=== PATIENT | female | born 1990 | race Caucasian/White ===

== ENCOUNTER 2016-09-01 03:45 | Emergency (ER) | payer SELFPAY ==
--- NOTE | 2016-09-01 04:16 | ER Document Report ---
ED General - General Chief Complaint: Vaginal Bleeding Stated Complaint: VAGINAL BLEEDING Time Seen by Provider: 09/01/16 04:14 Mode of Arrival: Ambulatory Information source: Patient Notes: Patient presents emergency department with complaints of abdominal pain, vaginal bleeding outside of her menstrual cycle. Patient reports she already had a menses this month from August 09-. She reports 2 days ago she started bleeding again. She reports she is gone through 3 supersized tampons in 6 hours. Has a history of diabetes and PCOS. Patient is unsure if she is . Patient is smiling laughing in no distress. TRAVEL OUTSIDE OF THE [place] IN LAST 30 DAYS: No - HPI Onset: Other - tuesday Quality of pain: Cramping Severity: Moderate Pain Level: 3 Associated symptoms: None Exacerbated by: Denies Relieved by: Denies Similar symptoms previously: No Recently seen / treated by doctor: No - Related Data Allergies/Adverse Reactions: medroxyprogesterone acetate [From Provera] Allergy (Verified 12/30/14 17:22) Past Medical History - General Information source: Patient Last Menstrual Period: current - Social History Smoking Status: Current Every Day Smoker Cigarette use (# per day): Yes Chew tobacco use (# tins/day): No Frequency of alcohol use: None Drug Abuse: None Family History: DM, Hyperlipidemia, Malignancy, Thyroid Disfunction, Other - hemochromotosis and kidney disease Patient has suicidal ideation: No Patient has homicidal ideation: No Endocrine Medical History: Reports: Hx Diabetes Mellitus Type 2, Other - pcos Renal/ Medical History: Denies: Hx Peritoneal Dialysis Psychiatric Medical History: Reports: Hx Anxiety, Hx Depression Past Surgical History: Reports: Hx Section - 1 - Immunizations Immunizations up to date: Yes Hx Diphtheria, Pertussis, Tetanus Vaccination: Yes Review of Systems - Review of Systems Notes: Review HPI for review of systems., All other systems negative Physical Exam - Vital signs Vitals: Temp Pulse Resp BP Pulse Ox 98 F 53 L 18 125/82 97 09/01/16 03:52 09/01/16 03:52 09/01/16 03:52 09/01/16 03:52 09/01/16 03:52 - Notes Notes: PHYSICAL EXAMINATION: GENERAL: Well-appearing and in no acute distress HEAD: Atraumatic, normocephalic. EYES: Pupils equal round extraocular movements intact, sclera anicteric, conjunctiva are normal. ENT: nares patent, . Moist mucous membranes. NECK: Normal range of motion, supple without lymphadenopathy LUNGS: CTAB and equal. No wheezes rales or rhonchi. HEART: Regular rate and rhythm without murmurs ABDOMEN: Soft, no tenderness. No guarding, no rebound no pain with palpation EXTREMITIES: Normal range of motion, no pitting edema. No cyanosis. NEUROLOGICAL: Cranial nerves grossly intact. Normal sensory/motor exams. PSYCH: Normal mood, normal affect. SKIN: Warm, Dry, normal turgor, no rashes or lesions noted Course - Re-evaluation Re-evalutation: 09/01/16 Labs unremarkable. Pt has PCOS, possible irregular menses. Pt was instructed on labs, importance of fu with welder assembler. - Vital Signs Vital signs: Temp Pulse Resp BP Pulse Ox 97.5 F 42 L 18 94/50 L 96 09/01/16 06:34 09/01/16 06:34 09/01/16 03:52 09/01/16 06:34 09/01/16 06:34 - Laboratory Result Diagrams: 09/01/16 05:11 09/01/16 05:11 Laboratory results interpreted by me: 09/01/16 09/01/16 05:11 05:11 WBC 10.8 H Chloride 108 H Carbon Dioxide 20 L Discharge - Discharge Clinical Impression: Vaginal bleeding Condition: Stable Disposition: HOME, SELF-CARE Instructions: Vaginal Bleeding ([facility]), [facility], [facility] [place] Additional Instructions: *You have been evaluated for vaginal bleeding *Take medication as prescribed *Follow up with your UNDERGROUND ELECTRICIAN or the health department for recheck *Return to ED for worsening condition, changes, needs Referrals: LEIGH BA MD [Primary Care Provider] - Follow up in 3-5 days
[2016-09-01 05:28] LABS: ABSOLUTE BASOPHILS # (AUTO) 0.1 10^3/uL (0.0-0.2); ABSOLUTE EOSINOPHILS # (AUTO) 0.5 10^3/uL (0.0-0.6); ABSOLUTE LYMPHOCYTES (AUTO) 2.9 10^3/uL (0.5-4.7); ABSOLUTE MONOCYTES (AUTO) 0.8 10^3/uL (0.1-1.4); ABSOLUTE NEUT (AUTO) 6.4 10^3/uL (1.7-8.2); BASOPHILS % (AUTO) 1.2 % (0-2); HEMATOCRIT 44.7 % (36.0-47.0); HGB HCT DIFFERENCE 0.3; LYMPHOCYTES % (AUTO) 26.8 % (13-45); MEAN CORPUSCULAR HEMOGLOBIN 30.7 pg (27.0-33.4); MEAN CORPUSCULAR HGB CONC 33.6 g/dL (32.0-36.0); MEAN CORPUSCULAR VOLUME 91 fl (80-97); MONOCYTES % (AUTO) 7.8 % (3-13); RED BLOOD COUNT 4.89 10^6/uL (3.72-5.28); RED CELL DISTRIBUTION WIDTH 13.1 % (11.5-14.0); SEGMENTED NEUTROPHILS % (AUTO) 59.2 % (42-78); WHITE BLOOD COUNT 10.8 10^3/uL (4.0-10.5)
[2016-09-01 05:39] LABS: ALANINE AMINOTRANSFERASE 46 U/L (9-52); ALKALINE PHOSPHATASE 63 U/L (38-126); ANION GAP 13 (5-19); ASPARTATE AMINO TRANSFERASE 35 U/L (14-36); BILIRUBIN,DIRECT 0.4 mg/dL (0.0-0.4); BILIRUBIN,TOTAL 1.1 mg/dL (0.2-1.3); BLOOD UREA NITROGEN 12 mg/dL (7-20); CALCIUM 9.7 mg/dL (8.4-10.2); CARBON DIOXIDE 20 mmol/L (22-30); CHLORIDE 108 mmol/L (98-107); GLUCOSE 101 mg/dL (75-110); POTASSIUM 4.3 mmol/L (3.6-5.0); SODIUM 140.5 mmol/L (137-145)
[2016-09-01 06:36] VITALS: BP 94/50
== END 2016-09-01 06:36 | disposition home or self-care (01) ==
LOC: ER 03:45
DX: N93.8 Other specified abnormal uterine and vaginal bleeding (principal); R10.9 Unspecified abdominal pain; F17.210 Nicotine dependence, cigarettes, uncomplicated
CPT/HCPCS: 36415; 80053; 84702; 85025; 99284

== ENCOUNTER 2016-09-26 10:49 | Emergency (ER) | payer SELFPAY ==
[2016-09-26 10:55] VITALS: BP 118/79
--- NOTE | 2016-09-26 11:54 | ER Document Report ---
HPI - HPI Pain Level: 4 Notes: Patient is a 26-year-old female who presents to the ED complaining of left low back pain 1 day without known injury. Patient states that she was working around the house the day before. Patient states that she does have osteoarthritis in her low back, but no other issues to her back. She denies any radiation of her pain. The pain is described as a soreness/occasional sharp. Patient states that the pain is worsened with twisting and flexing. She denies any loss of control of bowel or bladder, urinary retention, muscle paralysis/weakness, numbness/tingling, saddle anesthesia. She denies any recent illness, travel, exposure to sick contacts. She denies any procedures or injections into her low back. Patient does have a past medical history significant for insulin-dependent diabetes and is on Lantus daily. Patient admits to smoking but denies any other illicit or IV drug use. Her PCM is [facility]. Denies any fever, URI, headache, chest pain, palpitations, syncope, cough, wheeze, shortness of breath, abdominal pain, nausea/vomiting/ diarrhea/constipation, hematuria, dysuria, vaginal discharge/pain, or rash. - ROS Notes: REVIEW OF SYSTEMS: CONSTITUTIONAL : Denies fever, chills, or sweats. Denies recent illness. EENT: Denies eye, ear, throat, or mouth pain or symptoms. Denies nasal or sinus congestion or discharge. Denies throat, tongue, or mouth swelling or difficulty swallowing. CARDIOVASCULAR: Denies chest pain. Denies palpitations or racing or irregular heart beat. Denies ankle edema. RESPIRATORY: Denies cough, cold, or chest congestion. Denies shortness of breath, difficulty breathing, or wheezing. GASTROINTESTINAL: Denies abdominal pain or distention. Denies nausea, vomiting , or diarrhea. Denies blood in vomitus, stools, or per rectum. Denies black, tarry stools. Denies constipation. GENITOURINARY: Denies difficulty urinating, painful urination, burning, frequency, blood in urine, or discharge. MUSCULOSKELETAL: see hpi SKIN: Denies rash, lesions or sores. NEUROLOGICAL: Denies confusion or altered mental status. Denies passing out or loss of consciousness. Denies dizziness or lightheadedness. Denies headache. Denies weakness or paralysis or loss of use of either side. Denies problems with gait or speech. Denies sensory loss, numbness, or tingling. ALL OTHER SYSTEMS REVIEWED AND NEGATIVE. Dictation was performed using [employer] voice recognition software - CARDIOVASCULAR Cardiovascular: DENIES: Chest pain - REPRODUCTIVE Reproductive: DENIES: : - DERM Skin Color: Normal Past Medical History - Social History Smoking Status: Current Every Day Smoker Chew tobacco use (# tins/day): No Frequency of alcohol use: Rare Drug Abuse: None Family History: DM, Hyperlipidemia, Malignancy, Thyroid Disfunction, Other - hemochromotosis and kidney disease Endocrine Medical History: Reports: Hx Diabetes Mellitus Type 2 Renal/ Medical History: Denies: Hx Peritoneal Dialysis Psychiatric Medical History: Reports: Hx Anxiety, Hx Depression Past Surgical History: Reports: Hx Section - 1 - Immunizations Immunizations up to date: Yes Hx Diphtheria, Pertussis, Tetanus Vaccination: Yes Vertical Provider Document - CONSTITUTIONAL Agree With Documented VS: Yes Notes: PHYSICAL EXAMINATION: GENERAL: Well-appearing, well-nourished and in no acute distress. NECK: Normal range of motion, supple without lymphadenopathy. no rigidity/ meningismus. LUNGS: Breath sounds clear to auscultation bilaterally and equal. No wheezes rales or rhonchi. HEART: Regular rate and rhythm without murmurs, rubs, gallops. ABDOMEN: Soft, nontender, nondistended abdomen. No guarding, no rebound. No masses appreciated. Normal bowel sounds present. No CVA tenderness bilaterally. No pulsatile mass. Musculoskeletal: Lower Ext b/l: FROM to passive/active. Strength 5+/5. No deficits noted. N/V intact. Back: FROM to passive/active. Strength 5+/5. No vertebral point tenderness, stepoffs, or deformities. No other bony tenderness or ecchymosis. SLR negative b/l. + mild tenderness and muscle spasm to left L-paraspinal mm. Extremities: No cyanosis, clubbing, or edema b/l. Peripheral pulses 2+. Capillary refill less than 2 seconds. NEUROLOGICAL: MMSE intact. Cranial nerves grossly intact. Normal speech, normal gait. Normal sensory, motor exams. Reflexes 2+ b/l. ANAHY's negative. Heel/silva, finger/nose wnl. Walking on heels/toes and heel to toe wnl. PSYCH: Normal mood, normal affect. SKIN: Warm, Dry, normal turgor, no rashes or lesions noted. - INFECTION CONTROL TRAVEL OUTSIDE OF THE [place] IN LAST 30 DAYS: No - RESPIRATORY O2 Sat by Pulse Oximetry: 97 Course - Re-evaluation Re-evalutation: 09/26/16 11:53 Patient is an afebrile, well-hydrated, 26-year-old diabetic female presents the ED with suspected low back strain. Vitals are stable. PE otherwise unremarkable for any focal neurological deficits. Low suspicion for any meningitis, fracture, expanding/ruptured AAA, cauda equina syndrome, epidural mass lesion/abscess, herniated disc causing severe spinal stenosis, or other systemic infection at this time. Patient is aware that his condition can change from initial presentation and that he needs monitor symptoms closely for any acute changes. I will send her home with a prescription for meloxicam, baclofen, and Voltaren gel to use as directed. Conservative measures for symptoms otherwise. Recheck with her PCM this week. Consider consult with physical therapy/orthopedics. Return to the ED with any worsening/concerning symptoms otherwise as reviewed in discharge. Patient is in agreement. - Vital Signs Vital signs: Temp Pulse Resp BP Pulse Ox 98.1 F 48 L 16 118/79 97 09/26/16 10:53 09/26/16 10:53 09/26/16 10:53 09/26/16 10:53 09/26/16 10:53 Discharge - Discharge Clinical Impression: Back strain Qualifiers: Encounter type: initial encounter Qualified Code(s): S39.012A - Strain of muscle, fascia and tendon of lower back, initial encounter Condition: Stable Disposition: HOME, SELF-CARE Instructions: Ice Packs ([facility]), Low Back Pain ([facility]), Muscle Strain ([facility]), Warm Packs ([facility]), Stretching Exercises for the Back ([facility]) Additional Instructions: Rest, Ice, Compression, Elevation Take meds as directed Tylenol/ibuprofen as needed Light stretches daily Strength exercises as able Moist heat and massage may help F/u with your PCP in 2-3 days for a recheck Consider consult(s) with physical therapy/Orthopedics for ongoing/worsening symptoms Return to the ED with any worsening symptoms and/or development of fever, headache, chest pain, palpitations, syncope, shortness of breath, trouble breathing, abdominal pain, n/v/d, blood in stool/urine, loss of control of bowel /bladder, urinary retention, muscle weakness/paralysis, saddle anesthesia, numbness/tingling, or other worsening symptoms that are concerning to you. Prescriptions: Baclofen [Baclofen 10 mg Tablet] 5 mg PO BID PRN #10 tablet PRN Reason: Diclofenac Sodium 4 gm TP QID #100 gel..gram. Meloxicam 7.5 mg PO BID PRN #20 tablet PRN Reason: Forms: Smoking Cessation Education Referrals: LEIGH BA MD [Primary Care Provider] - Follow up as needed [facility] [Provider Group] - Follow up as needed
== END 2016-09-26 12:05 | disposition home or self-care (01) ==
LOC: ER 10:49
DX: S39.012A Strain of muscle, fascia and tendon of lower back, initial encounter (principal); X58.XXXA Exposure to other specified factors, initial encounter; M47.896 Other spondylosis, lumbar region; E11.9 Type 2 diabetes mellitus without complications; F17.200 Nicotine dependence, unspecified, uncomplicated; Z79.4 Long term (current) use of insulin
CPT/HCPCS: 99283

== ENCOUNTER → 2017-03-14 | Outpatient (CLI) | payer SELFPAY ==
--- NOTE | 2017-03-14 17:28 | RADIOLOGY REPORT (SQ) ---
EXAM DESCRIPTION: U/S [id number] TRNABD 1GES W/ODOP COMPLETED DATE/TIME: 03/14/2017 5:18 pm REASON FOR STUDY: SIZE AND DATE, ANATOMY SCAN Z34.82 ENCOUNTER FOR SUPRVSN OF NORMAL , SEC OND TRI COMPARISON: None. TECHNIQUE: Transabdominal static and realtime grayscale images acquired of the pelvis. Additional se lected spectral and color Doppler images recorded. All images stored on PACs. bHCG: Not available LIMITATIONS: Patient's urinary bladder is distended Large body habitus FINDINGS: UTERUS: No masses. No anomalies. Uterus is 13 x 6 x 4 cm in size GESTATIONAL SAC: Yes, mean sac diameter generates an estimated age of 5 weeks 3 days YOLK SAC: No POLE: No RIGHT ADNEXA: Normal ovary with normal vascular flow. Right ovary 3.1 x 2.5 x 1.7 cm size. No adnexal free fluid. No adnexal masses. LEFT ADNEXA: Not well seen due to adnexal bowel gas FREE FLUID: None. OTHER: No other significant finding. IMPRESSION: POSSIBLE EARLY INTRAUTERINE . An anechoic sac is identified in the endometrial canal likely a small early gestational sac. However , the left adnexa is not well due to bowel gas. CONSIDER F/U BHCG AND/OR ULTRASOUND FOR VERIFICATION AND TO EXCLUDE ECTOPIC . Trimester of : First - 0 to 13 weeks. TECHNICAL DOCUMENTATION: JOB ID: [id number] [employer]- All Rights Reserved
== END ==
LOC: RAD 16:19
PROVIDERS: ATTEND Nurse Practitioner Women's Health
DX: Z34.81 Encounter for supervision of other normal pregnancy, first trimester (principal)
CPT/HCPCS: 76801

== ENCOUNTER → 2017-03-29 | Outpatient (CLI) | payer SELFPAY ==
--- NOTE | 2017-03-29 17:29 | RADIOLOGY REPORT (SQ) ---
EXAM DESCRIPTION: U/S OB TRANSVAGINAL W/O DOP COMPLETED DATE/TIME: 03/29/2017 5:21 pm REASON FOR STUDY: Z34.81 ENCOUNTER FOR SUPRVSN OF NORMAL , FIRST TRIMESTER Z34.81 ENCOUNTE R FOR SUPRVSN OF NORMAL , FIRST TRIM COMPARISON: 03/14/2017. TECHNIQUE: Transvaginal static and realtime grayscale images acquired of the pelvis. Additional javy cted spectral and color Doppler images recorded. All images stored on PACs. bHCG: Not applicable. LIMITATIONS: None. FINDINGS: FETUS: Living intrauterine . EGA: 7 week 3 day. GOLDEN: 11/12/2017. FHR: 175 beats per minute. SUBCHORIONIC BLEED: Yes. SIZE OF BLEED: 1.9 cm. UTERUS: No masses. No anomalies. CERVICAL LENGTH: 3.2 cm. Closed. RIGHT ADNEXA: Ovary not identified. No adnexal free fluid. No adnexal masses. LEFT ADNEXA: Ovary not identified. No adnexal free fluid. No adnexal masses. FREE FLUID: None. OTHER: No other significant finding. IMPRESSION: LIVING INTRAUTERINE . EGA 7 WEEK 3 DAY. Trimester of : First - 0 to 13 weeks. TECHNICAL DOCUMENTATION: JOB ID: [id number] [employer]- All Rights Reserved
== END ==
LOC: RAD 16:01
PROVIDERS: ATTEND Nurse Practitioner Women's Health
DX: Z34.81 Encounter for supervision of other normal pregnancy, first trimester (principal)
CPT/HCPCS: 76817

== ENCOUNTER 2017-05-25 20:08 | Emergency (ER) | payer SELFPAY ==
--- NOTE | 2017-05-25 20:49 | ER Document Report ---
ED Medical Screen (RME) - General Chief Complaint: L flank pain Stated Complaint: FLANK PAIN 15 WK PREG Time Seen by Provider: 05/25/17 20:46 Notes: pt is 15 wks . She has had a normal US at 7 wks. has 7 to 8 episodes today of left flank pain. TRAVEL OUTSIDE OF THE [place] IN LAST 30 DAYS: No - Related Data Allergies/Adverse Reactions: medroxyprogesterone acetate [From Provera] Allergy (Verified 12/30/14 17:22) Past Medical History Endocrine Medical History: Reports: Hx Diabetes Mellitus Type 2 Renal/ Medical History: Denies: Hx Peritoneal Dialysis Psychiatric Medical History: Reports: Hx Anxiety, Hx Depression Past Surgical History: Reports: Hx Section - 1 - Immunizations Immunizations up to date: Yes Hx Diphtheria, Pertussis, Tetanus Vaccination: Yes Physical Exam - Vital signs Vitals: Temp Pulse Resp BP Pulse Ox 98.0 F 57 L 20 111/64 98 05/25/17 20:14 05/25/17 20:14 05/25/17 20:14 05/25/17 20:14 05/25/17 20:14 Course - Vital Signs Vital signs: Temp Pulse Resp BP Pulse Ox 98.0 F 57 L 20 111/64 98 05/25/17 20:14 05/25/17 20:14 05/25/17 20:14 05/25/17 20:14 05/25/17 20:14
[2017-05-25 21:38] LABS: ABSOLUTE BASOPHILS # (AUTO) 0.1 10^3/uL (0.0-0.2); ABSOLUTE EOSINOPHILS # (AUTO) 0.4 10^3/uL (0.0-0.6); ABSOLUTE LYMPHOCYTES (AUTO) 2.3 10^3/uL (0.5-4.7); ABSOLUTE MONOCYTES (AUTO) 0.6 10^3/uL (0.1-1.4); ABSOLUTE NEUT (AUTO) 7.8 10^3/uL (1.7-8.2); BASOPHILS % (AUTO) 0.5 % (0-2); EOSINOPHILS % (AUTO) 3.9 % (0-6); HEMATOCRIT 41.3 % (36.0-47.0); LYMPHOCYTES % (AUTO) 20.4 % (13-45); MEAN CORPUSCULAR HEMOGLOBIN 30.9 pg (27.0-33.4); MEAN CORPUSCULAR VOLUME 91 fl (80-97); MONOCYTES % (AUTO) 5.8 % (3-13); PLATELET COUNT 233 10^3/uL (150-450); RED BLOOD COUNT 4.55 10^6/uL (3.72-5.28); RED CELL DISTRIBUTION WIDTH 13.2 % (11.5-14.0); SEGMENTED NEUTROPHILS % (AUTO) 69.4 % (42-78); TOTAL CELLS COUNTED % (AUTO) 100 %; WHITE BLOOD COUNT 11.2 10^3/uL (4.0-10.5)
[2017-05-25 21:48] LABS: APPEARANCE,URINE CLEAR; BILIRUBIN,URINE NEGATIVE (NEGATIVE); COLOR,URINE YELLOW; GLUCOSE, URINE NEGATIVE (NEGATIVE); KETONES,URINE NEGATIVE (NEGATIVE); LEUKOCYTE ESTERASE,URINE NEGATIVE (NEGATIVE); NITRITE,URINE NEGATIVE (NEGATIVE); PROTEIN,URINE NEGATIVE (NEGATIVE); URINE SPECIFIC GRAVITY 1.009; UROBILINOGEN,URINE NEGATIVE mg/dL (<2.0)
[2017-05-25 21:57] LABS: ALANINE AMINOTRANSFERASE 31 U/L (9-52); ALBUMIN 3.8 g/dL (3.5-5.0); ALKALINE PHOSPHATASE 45 U/L (38-126); ANION GAP 12 (5-19); ASPARTATE AMINO TRANSFERASE 16 U/L (14-36); BILIRUBIN,DIRECT 0.1 mg/dL (0.0-0.4); BILIRUBIN,TOTAL 0.7 mg/dL (0.2-1.3); BLOOD UREA NITROGEN 8 mg/dL (7-20); CALCIUM 9.5 mg/dL (8.4-10.2); CARBON DIOXIDE 21 mmol/L (22-30); CHLORIDE 106 mmol/L (98-107); GLUCOSE 120 mg/dL (75-110); POTASSIUM 3.8 mmol/L (3.6-5.0); SODIUM 138.7 mmol/L (137-145); TOTAL PROTEIN 6.3 g/dL (6.3-8.2)
--- NOTE | 2017-05-25 22:32 | ER Document Report ---
ED GI/ - General Chief Complaint: L flank pain Stated Complaint: FLANK PAIN 15 WK PREG Time Seen by Provider: 05/25/17 20:46 Mode of Arrival: Ambulatory Information source: Patient TRAVEL OUTSIDE OF THE [place] IN LAST 30 DAYS: No - HPI Patient complains to provider of: Abdominal pain Notes: 05/25/17 22:31 Patient is here with complaints of abdominal pain. The patient is 15 weeks . This is her second and she has 1 living child. She has had a ultrasound showing an intrauterine at about 7 weeks. She has had no complications throughout her . She has a history of diabetes. She states that is since earlier this morning she has had several intermittent episodes of left-sided abdominal pain that radiates into her back. She states that the pain lasts for about 30 seconds and then resolves on its own. She denies having any pain currently. She denies any vaginal bleeding or discharge. She denies nausea, vomiting, diarrhea. She denies fever. She denies dysuria or hematuria. No chest pain or shortness of breath. She denies any numbness, tingling, weakness. She denies any other complaints at this time. - Related Data Allergies/Adverse Reactions: medroxyprogesterone acetate [From Provera] Allergy (Verified 12/30/14 17:22) Past Medical History - Social History Smoking Status: Unknown if Ever Smoked Family History: DM, Hyperlipidemia, Malignancy, Thyroid Disfunction, Other - hemochromotosis and kidney disease Patient has suicidal ideation: No Patient has homicidal ideation: No Endocrine Medical History: Reports: Hx Diabetes Mellitus Type 2 Renal/ Medical History: Denies: Hx Peritoneal Dialysis Psychiatric Medical History: Reports: Hx Anxiety, Hx Depression Past Surgical History: Reports: Hx Section - 1 - Immunizations Immunizations up to date: Yes Hx Diphtheria, Pertussis, Tetanus Vaccination: Yes Review of Systems - Review of Systems -: Yes All other systems reviewed and negative Physical Exam - Vital signs Vitals: Temp Pulse Resp BP Pulse Ox 98.0 F 57 L 20 111/64 98 05/25/17 20:14 05/25/17 20:14 05/25/17 20:14 05/25/17 20:14 05/25/17 20:14 - Notes Notes: GENERAL: alert, cooperative, nontoxic, no distress. HEAD: normocephalic, atraumatic EYES: conjunctiva pink without discharge, no external redness or swelling. EARS: no external swelling, no external redness NOSE: atraumatic, no external swelling MOUTH/THROAT: mucous membranes moist and pink, posterior pharynx without erythema, swelling, exudate. No trismus or drooling. NECK: soft, supple, full range of motion, no meningismus. CHEST: no distress, lungs clear and equal throughout. No wheezing, rales, rhonchi. CARDIAC: regular rate and rhythm, no murmur, normal capillary refill, normal pulses. No peripheral edema noted. ABDOMEN: Soft, mild tenderness to the right and left mid abdomen/lower abdomen. No rebound tenderness or guarding. BACK: full range of motion, no CVA tenderness. EXTREMITIES: full range of motion of all extremities. No redness, no swelling. NEURO: alert and oriented x 3, no focal deficits, full range of motion of all extremities. PYSCH: appropriate mood, affect. Patient is cooperative. SKIN: pink, warm, dry, no rash. Course - Re-evaluation Re-evalutation: 05/26/17 01:37 Patient is nontoxic appearing with stable vitals. The patient is 15 weeks been having some intermittent pain in her left lower abdomen. Pain seems to be brief. She did denied any pain when I was talking to her but she has some mild tenderness on her abdominal exam, therefore an ultrasound was ordered. Ultrasound shows no acute abnormalities. Blood work is unremarkable. Urinalysis shows no signs of infection. This point patient can be discharged home with instructions to follow-up with her CLERICAL COORDINATOR at the next available appointment. Follow-up sooner for worsening pain, high fever, persistent vomiting, vaginal bleeding, or for any further concerns. The patient's emergency department workup and current diagnosis were explained to the patient and or family. Follow-up instructions were provided. Medications if prescribed were discussed. Instructions for when to return to the emergency department including specific worrisome symptoms were discussed with the patient and/or family. - Vital Signs Vital signs: Temp Pulse Resp BP Pulse Ox 98.0 F 57 L 20 111/64 98 05/25/17 20:14 05/25/17 20:14 05/25/17 20:14 05/25/17 20:14 05/25/17 20:14 - Laboratory Result Diagrams: 05/25/17 21:21 05/25/17 21:21 Laboratory results interpreted by me: 05/25/17 05/25/17 21:21 21:21 WBC 11.2 H Carbon Dioxide 21 L Glucose 120 H - Diagnostic Test Radiology reviewed: Image reviewed, Reports reviewed - Ultrasound of pelvis shows no acute abnormality with a live intrauterine . Discharge - Discharge Clinical Impression: Qualifiers: Weeks of gestation: 15 weeks Qualified Code(s): Z3A.15 - 15 weeks gestation of Abdominal pain Qualifiers: Abdominal location: lower abdomen, unspecified Qualified Code(s): R10.30 - Lower abdominal pain, unspecified Condition: Stable Disposition: HOME, SELF-CARE Instructions: Abdominal Pain ([facility]), ([facility]) Additional Instructions: Follow-up with your CLERICAL COORDINATOR at the next available appointment. Drink plenty of fluids. Tylenol as needed for pain. Follow-up sooner for worsening pain, high fever, persistent vomiting, vaginal bleeding, or for any further concerns. Referrals: VERONICA CHEW MD [Primary Care Provider] - Follow up as needed
--- NOTE | 2017-05-26 01:11 | RADIOLOGY REPORT (SQ) ---
EXAM DESCRIPTION: U/S OB 14+ TA/1 GEST W/DOPPLER CLINICAL HISTORY: 27 years Female, right and left lower abdo pain, 15 wks preg COMPARISON: 03/29/2017 TECHNIQUE: Second trimester obstetrical ultrasound with transabdominal imaging. FINDINGS: This ultrasound is obtained early in the second trimester which is not optimal timing for organ survey. LVP: 4.0 cm. Placenta: Anterior. presentation: Breech Cervical length: 3.8 cm and closed. measurements: Head circumference: 12.43 cm, compatible with an estimated gestational age of 16 weeks, 2 days. Abdominal circumference: 10.42 cm compatible with an estimated gestational age of 16 weeks, 3 days. Biparietal diameter: 3.25 cm compatible with an estimated gestational age of 16 weeks, 1 day. Femur length: 2.03 cm compatible with an estimated gestational age of 16 weeks, 0 days. HC/AC: 1.19 FL/BPD: 62.5 FL/HC: 16.3 FL/AC 19.5 CI: 79.7 Estimated weight of 149 g. LMP: 02/05/2017. Ultrasound age: 16 weeks, 2 days. Estimated delivery date of 11/08/2017. organ survey. heart rate of 141 beats for minute. Four-chamber heart: Not visualized. Three-vessel CORD: Visualized. Cord insertion: Visualized and within normal limits. Kidneys: Visualized and no abnormalities identified. Bladder:Visualized and no abnormalities identified. Stomach: Visualized and no abnormalities identified. Spine: Incompletely visualized. Lateral ventricles: Visualized and no abnormality identified. Cerebellum: Visualized and no abnormality identified. Cisterna magna: Visualized and no abnormality identified. Upper extremities: Visualized and no abnormality identified. Large series: Visualized and no abnormality identified. Adnexa: Right ovary not identified. Left ovary measures 2.9 x 4.2 x 2.2 cm with color and spectral Doppler imaging identified. IMPRESSION: 1. Single live intrauterine with estimated gestational age of 16 weeks, 2 days and heart rate of 141 beats for minute. 2. No abnormalities identified on organ survey however the spine and four-vessel views of the heart are not definitely obtained. Repeat organ survey at the appropriate time in the mid second trimester recommended for complete evaluation.
[2017-05-26 01:50] VITALS: BP 107/65
== END 2017-05-26 01:52 | disposition home or self-care (01) ==
LOC: ER 20:08
DX: O26.892 Other specified pregnancy related conditions, second trimester (principal); R10.32 Left lower quadrant pain; O24.112 Pre-existing type 2 diabetes mellitus, in pregnancy, second trimester; E11.9 Type 2 diabetes mellitus without complications; Z3A.15 15 weeks gestation of pregnancy; Z88.8 Allergy status to other drugs, medicaments and biological substances
CPT/HCPCS: 36415; 76805; 80053; 81001; 85025; 93976; 99284

== ENCOUNTER 2017-09-15 09:28 | Outpatient (CLI) | payer MEDICAID ==
--- NOTE | 2017-09-15 10:36 | Non Stress Test Report ---
Non Stress Test Datetime Report Generated by CPN: 09/15/2017 10:36 DEMOGRAPHIC EGA NST: 31.5 INDICATION Indication for Study: Diabetes Mellitus; Ordered by Provider VITAL SIGNS Temperature - NST: 98.4 Pulse - NST: 66 RESP - NST: 20 NBPSYS NST: 100 NBPDIA NST: 56 MONITORING Monitor Explained: Monitor Explained; Test Explained; Patient Verbalized Understanding Time on Monitor: 09/15/2017 09:50 Time off Monitor: 09/15/2017 10:12 NST Duration: 22 NST INTERVENTIONS NST Interventions: PO Hydration; Reposition Patient Physician Notified NST: Dr Stein BABY A: [id number] BABY A Movement : Present Contraction Frequency : denies FHR Baseline : 120 Accelerations : 15X15 Decelerations : None Variability : Moderate 6-25bpm NST Review: Meets Criteria for Reactive NST NST Review and Verified By : DMITRI Dueñas Results: Reactive NST REPORT Report Trigger: Send Report
== END 2017-09-15 10:15 | disposition home or self-care (01) ==
LOC: LC 09:28
PROVIDERS: ATTEND Student in an Organized Health Care Education/Training Program
PROC: 4A1HXCZ Monitoring of Products of Conception, Cardiac Rate, External Approach (ICD-10-PCS; principal; 2017-09-15)
DX: O24.913 Unspecified diabetes mellitus in pregnancy, third trimester (principal); Z3A.31 31 weeks gestation of pregnancy
CPT/HCPCS: 59025

== ENCOUNTER 2017-09-19 14:07 | Outpatient (CLI) | payer MEDICAID ==
[2017-09-19 15:38] LABS: APPEARANCE,URINE SLIGHTLY-CLOUDY; BILIRUBIN,URINE NEGATIVE (NEGATIVE); CALCIUM OXALATE CRYSTALS,URINE MANY /HPF; GLUCOSE, URINE NEGATIVE (NEGATIVE); KETONES,URINE TRACE mg/dL (NEGATIVE); LEUKOCYTE ESTERASE,URINE NEGATIVE (NEGATIVE); NITRITE,URINE NEGATIVE (NEGATIVE); PROTEIN,URINE 30 mg/dL (NEGATIVE); URINE SPECIFIC GRAVITY 1.026
[2017-09-19 15:39] LABS: COLOR,URINE YELLOW
[2017-09-19 15:49] LABS: URINE AMPHETAMINES SCREEN NEGATIVE; URINE BARBITURATES SCREEN NEGATIVE; URINE BENZODIAZEPINES SCREEN NEGATIVE; URINE COCAINE SCREEN NEGATIVE; URINE MARIJUANA (THC) SCREEN NEGATIVE; URINE METHADONE SCREEN NEGATIVE; URINE PHENCYCLIDINE SCREEN NEGATIVE
[2017-09-19 15:49] LABS: AMNISURE (ROM) NEGATIVE (NEGATIVE)
== END 2017-09-19 16:20 | disposition home or self-care (01) ==
LOC: LC 14:07
PROVIDERS: ATTEND Obstetrics & Gynecology
PROC: 4A1HXCZ Monitoring of Products of Conception, Cardiac Rate, External Approach (ICD-10-PCS; principal; 2017-09-19)
DX: O47.03 False labor before 37 completed weeks of gestation, third trimester (principal); Z3A.32 32 weeks gestation of pregnancy
CPT/HCPCS: 59025; 80307; 81001; 84112

== ENCOUNTER 2017-10-22 21:06 | Outpatient (CLI) | payer MEDICAID ==
[2017-10-22 21:41] LABS: APPEARANCE,URINE CLEAR; BILIRUBIN,URINE NEGATIVE (NEGATIVE); COLOR,URINE YELLOW; GLUCOSE, URINE NEGATIVE (NEGATIVE); KETONES,URINE NEGATIVE (NEGATIVE); LEUKOCYTE ESTERASE,URINE NEGATIVE (NEGATIVE); NITRITE,URINE NEGATIVE (NEGATIVE); PROTEIN,URINE NEGATIVE (NEGATIVE); URINE SPECIFIC GRAVITY 1.016
[2017-10-22 21:52] LABS: URINE AMPHETAMINES SCREEN NEGATIVE; URINE BARBITURATES SCREEN NEGATIVE; URINE BENZODIAZEPINES SCREEN NEGATIVE; URINE COCAINE SCREEN NEGATIVE; URINE MARIJUANA (THC) SCREEN NEGATIVE; URINE METHADONE SCREEN NEGATIVE; URINE PHENCYCLIDINE SCREEN NEGATIVE
== END 2017-10-22 22:31 | disposition home or self-care (01) ==
LOC: LC 21:06
PROVIDERS: ATTEND Obstetrics & Gynecology
PROC: 4A1HXCZ Monitoring of Products of Conception, Cardiac Rate, External Approach (ICD-10-PCS; principal; 2017-10-22)
DX: O47.1 False labor at or after 37 completed weeks of gestation (principal); O99.283 Endocrine, nutritional and metabolic diseases complicating pregnancy, third trimester; E86.0 Dehydration; Z3A.37 37 weeks gestation of pregnancy
CPT/HCPCS: 59025; 80307; 81001

== ENCOUNTER 2017-10-24 07:02 | Outpatient (CLI) | payer MEDICAID ==
[2017-10-24 08:12] LABS: APPEARANCE,URINE SLIGHTLY-CLOUDY; BILIRUBIN,URINE NEGATIVE (NEGATIVE); COLOR,URINE YELLOW; GLUCOSE, URINE NEGATIVE (NEGATIVE); KETONES,URINE 20 mg/dL (NEGATIVE); LEUKOCYTE ESTERASE,URINE NEGATIVE (NEGATIVE); NITRITE,URINE NEGATIVE (NEGATIVE); PROTEIN,URINE NEGATIVE (NEGATIVE); URINE SPECIFIC GRAVITY 1.012; UROBILINOGEN,URINE NEGATIVE mg/dL (<2.0)
[2017-10-24 08:34] LABS: URINE AMPHETAMINES SCREEN NEGATIVE; URINE BARBITURATES SCREEN NEGATIVE; URINE BENZODIAZEPINES SCREEN NEGATIVE; URINE COCAINE SCREEN NEGATIVE; URINE MARIJUANA (THC) SCREEN NEGATIVE; URINE METHADONE SCREEN NEGATIVE
[2017-10-24 08:38] LABS: URINE PHENCYCLIDINE SCREEN NEGATIVE
--- NOTE | 2017-10-24 09:08 | Non Stress Test Report ---
Non Stress Test Datetime Report Generated by CPN: 10/24/2017 09:08 DEMOGRAPHIC EGA NST: 37.2 EGA NST: 37.0 EGA NST: 32.2 INDICATION Indication for Study: Ordered by Provider; Other Indication for Study: Ordered by Provider; Other Indication for Study: Ordered by Provider Indication for Study (NST) Other: labor check Indication for Study (NST) Other: LC VITAL SIGNS Temperature - NST: 98.8 Pulse - NST: 54 RESP - NST: 18 NBPSYS NST: 87 NBPDIA NST: 48 MONITORING Monitor Explained: Monitor Explained; Test Explained; Patient Verbalized Understanding Monitor Explained: Monitor Explained; Test Explained; Patient Verbalized Understanding Monitor Explained: Monitor Explained; Test Explained; Patient Verbalized Understanding Time on Monitor: 10/24/2017 08:08 Time on Monitor: 10/22/2017 21:28 Time on Monitor: 09/19/2017 14:28 Time off Monitor: 10/24/2017 09:00 Time off Monitor: 10/22/2017 22:25 Time off Monitor: 09/19/2017 16:17 NST Duration: 52 NST Duration: 57 NST Duration: 109 NST INTERVENTIONS NST Interventions: None NST Interventions: None NST Interventions: PO Hydration Physician Notified NST: J SIMMONS CNM Physician Notified NST: [place] Physician Notified NST: Dr. Isaac BABY A: [id number] BABY A Movement : Present Movement : Present Movement : Present Contraction Frequency : none Contraction Frequency : none Contraction Frequency : irritable FHR Baseline : 115 FHR Baseline : 115 FHR Baseline : 125 Accelerations : 15X15 Accelerations : 15X15 Accelerations : 15X15 Decelerations : None Decelerations : None Decelerations : None Variability : Moderate 6-25bpm Variability : Moderate 6-25bpm Variability : Moderate 6-25bpm NST Review: Meets Criteria for Reactive NST NST Review: Meets Criteria for Reactive NST NST Review: Meets Criteria for Reactive NST NST Review and Verified By : Symone Wesley RN NST Review and Verified By : Yudy Diggs RN NST Review and Verified By : Brandi Isaac RN NST Results: Reactive NST Results: Reactive NST Results: Reactive NST REPORT Report Trigger: Send Report
--- NOTE | 2017-10-24 09:13 | L&D Progress Notes ---
PROGRESS NOTES Datetime Report Generated by CPN: 10/24/2017 09:13 PROGRESS NOTE Comment: pt is here this AM for swellingin feet, has been in car alot this weekend, had a 0800 MFM appt this AM she missed and [facility] appt later in the week. States Blood sugars are normal, no meds, Cat 1 strip, no uc's. + FM VS normal, Discharge home, call MFM and R/S appt SIGNATURE SIGNATURE: [id number] SIGNATURE: [id number] SIGNATURE: [id number] Assignment: Myke Sierra MD Signature: with User ID: [email or web address] : with User ID: [email or web address]
== END 2017-10-24 09:14 | disposition home or self-care (01) ==
LOC: LC 07:02
PROVIDERS: ATTEND Obstetrics & Gynecology
PROC: 4A1HXCZ Monitoring of Products of Conception, Cardiac Rate, External Approach (ICD-10-PCS; principal; 2017-10-24)
DX: O47.1 False labor at or after 37 completed weeks of gestation (principal); O99.283 Endocrine, nutritional and metabolic diseases complicating pregnancy, third trimester; E86.0 Dehydration; Z3A.37 37 weeks gestation of pregnancy
CPT/HCPCS: 59025; 80307; 81001

== ENCOUNTER 2017-11-09 06:37 | Inpatient (IN) | payer MEDICAID ==
[2017-11-08 14:16] LABS: APPEARANCE,URINE CLOUDY; BILIRUBIN,URINE NEGATIVE (NEGATIVE); COLOR,URINE YELLOW; GLUCOSE, URINE NEGATIVE (NEGATIVE); KETONES,URINE TRACE mg/dL (NEGATIVE); LEUKOCYTE ESTERASE,URINE NEGATIVE (NEGATIVE); NITRITE,URINE NEGATIVE (NEGATIVE); PROTEIN,URINE NEGATIVE (NEGATIVE); URINE SPECIFIC GRAVITY 1.023
[2017-11-08 14:27] LABS: ABSOLUTE EOSINOPHILS # (AUTO) 0.2 10^3/uL (0.0-0.6); ABSOLUTE LYMPHOCYTES (AUTO) 1.7 10^3/uL (0.5-4.7); ABSOLUTE MONOCYTES (AUTO) 0.5 10^3/uL (0.1-1.4); ABSOLUTE NEUT (AUTO) 6.7 10^3/uL (1.7-8.2); BASOPHILS % (AUTO) 0.3 % (0-2); EOSINOPHILS % (AUTO) 1.7 % (0-6); HEMATOCRIT 43.1 % (36.0-47.0); HEMOGLOBIN 14.6 g/dL (12.0-15.5); LYMPHOCYTES % (AUTO) 18.9 % (13-45); MEAN CORPUSCULAR VOLUME 88 fl (80-97); MONOCYTES % (AUTO) 5.8 % (3-13); PLATELET COUNT 201 10^3/uL (150-450); RED BLOOD COUNT 4.87 10^6/uL (3.72-5.28); RED CELL DISTRIBUTION WIDTH 13.7 % (11.5-14.0); SEGMENTED NEUTROPHILS % (AUTO) 73.3 % (42-78); TOTAL CELLS COUNTED % (AUTO) 100 %; WHITE BLOOD COUNT 9.2 10^3/uL (4.0-10.5)
[2017-11-08 14:44] LABS: URINE AMPHETAMINES SCREEN NEGATIVE; URINE BARBITURATES SCREEN NEGATIVE; URINE BENZODIAZEPINES SCREEN NEGATIVE; URINE COCAINE SCREEN NEGATIVE; URINE MARIJUANA (THC) SCREEN NEGATIVE; URINE METHADONE SCREEN NEGATIVE; URINE PHENCYCLIDINE SCREEN NEGATIVE
--- NOTE | 2017-11-08 19:30 | EKG REPORT ---
SEVERITY:- NORMAL ECG - SINUS RHYTHM : Confirmed by: Alex Carreno MD 08-Nov-2017 19:29:22
[~2017-11-09 06:37] MED LIST: CEFAZOLIN SODIUM 2 GM in DEXTROSE 5%-WATER 100 ML IV PRN
[2017-11-09] MEDS ORDERED: EPHEDRINE SULFATE INJ 50 MG/1 ML AMPULE ONE (09:08)
[2017-11-09] MEDS ORDERED: BUPIVACAINE HCL/DEX-WATER/PF 15 MG/2 ML AMPULE ONE (09:08)
[2017-11-09] MEDS ORDERED: ONDANSETRON HCL INJ/PF 4 MG/2 ML SDV ONE (09:08)
[2017-11-09] MEDS ORDERED: MIDAZOLAM 2 MG/2 ML INJ ONE (09:08)
[2017-11-09] MEDS ORDERED: FENTANYL CITRATE INJ/PF 100 MCG/2 ML AMPUL ONE (09:08)
[2017-11-09] MEDS ORDERED: OXYTOCIN 10 UNIT/ML VIAL ONE (09:09)
[2017-11-09] MEDS ORDERED: PROMETHAZINE HCL INJ 25 MG/1 ML VIAL IV PRN (09:40)
[2017-11-09] MEDS ORDERED: OXYTOCIN/NORMAL SALINE 20 UNIT/1,000 ML RTUINJ IV PRN (09:40)
[2017-11-09] MEDS ORDERED: DIPH/PERTUSS(ACELL)/TETANUS VAC/PF 0.5 ML SYR (>=10YO) IM PRN (09:40)
[2017-11-09] MEDS ORDERED: SIMETHICONE 80 MG TAB.CHEW PO PRN (09:40)
[2017-11-09] MEDS ORDERED: OXYCODONE-ACETAMINOPHEN 5-325 MG TABLET PO PRN (09:40)
[2017-11-09] MEDS ORDERED: HYDROMORPHONE HCL INJ/PF 2 MG/ML AMPULE IV PRN (09:40)
[2017-11-09] MEDS ORDERED: ACETAMINOPHEN 325 MG TABLET PO PRN (09:40)
[2017-11-09] MEDS ORDERED: ACETAMINOPHEN 1,000 MG/100 ML RTUPB IV PRN (09:40)
[2017-11-09] MEDS ORDERED: MEASLES,MUMPS&RUBELLA VACC/PF 0.5 ML VIAL SUBCUT PRN (09:40)
[2017-11-09] MEDS ORDERED: RINGERS SOLUTION,LACTATED 1,000 ML IV PRN (09:40)
[2017-11-09] MEDS ORDERED: FENTANYL CITRATE INJ/PF 100 MCG/2 ML AMPUL IV PRN ×3 (09:52)
[2017-11-09] MEDS ORDERED: ONDANSETRON HCL INJ/PF 4 MG/2 ML SDV IV PRN (09:52)
[2017-11-09] MEDS ORDERED: DIPHENHYDRAMINE HCL 50 MG/ML VIAL IV PRN (09:52)
--- NOTE | 2017-11-09 10:57 | PDOC DELIVERY SUMMARY ---
Delivery Summary - Maternal Hx : II Hx # Term Pregnancies: 1 Hx # Pregnancies: 0 Hx Total # of Abortions (Sponateous & Elective): 0 GOLDEN: 11/11/17 Gestational Age: 39 Ruptured Membranes: AROM Time of Rupture: 10:04 Fluids: Clear - Delivery Presentation: Vertex Heart Rate Monitoring: Done Pre-Operatively Support Person Present: Yes Location: OR : Scheduled Placenta: Within Normal Limits Delivery of Placenta Date: 11/09/17 Delivery of Placenta Time: 10:08 - Medications Type of Anesthesia:: Spinal - Infant Assess and Care Baby 1 Male Delivery of Infant Date: 11/09/17 Delivery of Infant Time: 10:07 at 1 minute: 9 at 5 minutes: 9 Preprinted Number On Band: [id number] Skin to Skin: Yes Skin to Skin (Mins): 3 To Nursery At: 10:12 Mode of Transport: Bassinet Delivery Weight: 3,015 Delivery Length: 19 in - Delivery Personnel Hotel Houseman: MARTY DOTSON Nursery RN: MILAGROS PIERRE
--- NOTE | 2017-11-09 11:02 | Operative Report ---
Operative Report DATE OF SURGERY: 11/09/17 PREOPERATIVE DIAGNOSIS: 1. Intrauterine at 39-0/7 weeks. 2. Previous section x1. 3. Rh+. 4. Type 2 diabetes--on insulin. 5. Maternal obesity POSTOPERATIVE DIAGNOSIS: Same OPERATION: Repeat section SURGEON: SHANICE SANTIAGO 1ST DOCK GRADER: HUMAIRA PECK ANESTHESIA: Spinal TISSUE REMOVED OR ALTERED: Placenta COMPLICATIONS: None ESTIMATED BLOOD LOSS: 450 mL
--- NOTE | 2017-11-09 11:13 | Operative Report ---
Operative Report DATE OF SURGERY: 11/09/17 PREOPERATIVE DIAGNOSIS: 1. Intrauterine at 39-0/7 weeks. 2. Previous section x1. 3. Rh+. 4. Type 2 diabetes--on insulin. 5. Maternal obesity POSTOPERATIVE DIAGNOSIS: Same OPERATION: Repeat section SURGEON: SHANICE SANTIAGO 1ST RAISIN SEPARATOR OPERATOR: HUMAIRA PECK ANESTHESIA: Spinal TISSUE REMOVED OR ALTERED: Placenta ESTIMATED BLOOD LOSS: 450 mL PROCEDURE: The patient was taken to the operating room where spinal anesthesia was administered without difficulty. A Jackson catheter was in place in the patient' s bladder. Patient was then prepared and draped in a normal sterile fashion in dorsal supine position with a leftward tilt. A Pfannenstiel skin incision, using her previous incision as a guide was made with scalpel and carried through to the underlying layer of fascia. Fascia was then incised in the midline and the incision was extended laterally with Ocampo scissors. Severe aspect of the fascial incision was then grasped with Monroe clamps, elevated and the underlying rectus muscles were dissected off both bluntly and sharply. Attention was then turned to the inferior aspect of the incision which, similar fashion, was grasped with Monroe clamps and the rectus muscles dissected off both bluntly and sharply. The rectus muscles were then in the midline and the peritoneum was identified, tented up and entered sharply with Metzenbaum scissors. Peritoneal incision was then extended superiorly and inferiorly with good visualization of the bladder. The bladder blade was then inserted and the vesicouterine peritoneum identified, grasped with pickups and entered sharply with Metzenbaum scissors. The incision was then extended laterally and a bladder flap was created digitally. Bladder blade was then reinserted and the lower uterine segment was incised in a transverse fashion with scalpel. The uterine incision was then extended laterally with bandage scissors, as well as digitally. The bladder blade was removed and there was some difficulty delivering the presenting part, secondary to polyhydramnios. Therefore, a vacuum was placed on the infant's head and the infant was delivered atraumatically. The nose and mouth were suctioned with the bulb suction and the cord was clamped and cut. The was handed off to the awaiting sheet rock nailer. Cord blood was obtained. The placenta was then removed manually, and the uterus was exteriorized and cleared of all clots and debris. The uterine incision was then repaired with 0 Vicryl in a running, locked fashion. A second layer using 0 chromic was used to imbricate the incision for excellent hemostasis. The bladder flap was then repaired with 3-0 Vicryl in a running fashion. The abdomen was then copiously irrigated with warm normal saline. The uterus was then returned to the abdomen. The gutters were cleared of all clots and debris. The peritoneum was then closed in a running fashion with 2-0 Vicryl. The subcutaneous fat layer was then closed in an interrupted fashion with 3-0 Vicryl. The incision was then closed in a subcuticular fashion with 4-0 Monocryl. Patient tolerated the procedure well. Sponge, lap, instrument and needle counts were correct x2. She was given 2 g of Ancef prior to the start the procedure. The patient was taken to the recovery room.
[2017-11-09] MEDS ORDERED: OXYTOCIN/NORMAL SALINE 20 UNIT/1,000 ML RTUINJ ONE (11:22)
[2017-11-09] MEDS: DOCUSATE SODIUM 100 MG CAPSULE PO SCH ×2 (13:32→17:25)
[2017-11-09] MEDS: PRENATAL VITAMIN W DHA CAPSULE PO SCH (13:33)
[2017-11-09] MEDS: IBUPROFEN 800 MG TABLET PO SCH ×2 (13:33→17:06)
[2017-11-09] MEDS: KETOROLAC TROMETHAMINE INJ/PF 30 MG/1 ML SDV IV SCH ×2 (13:38→21:27)
[2017-11-09] MEDS: OXYCODONE-ACETAMINOPHEN 5-325 MG TABLET PO PRN (21:28)
[2017-11-09] MEDS: INSULIN GLARGINE,HUM.REC.ANLOG 300 UNIT/3 ML INSULN.PEN SUBCUT SCH (22:44)
[2017-11-10] MEDS: IBUPROFEN 800 MG TABLET PO SCH ×4 (01:44→17:47)
[2017-11-10] MEDS: KETOROLAC TROMETHAMINE INJ/PF 30 MG/1 ML SDV IV SCH (09:15)
[2017-11-10] MEDS: PRENATAL VITAMIN W DHA CAPSULE PO SCH (09:17)
[2017-11-10] MEDS: DOCUSATE SODIUM 100 MG CAPSULE PO SCH ×2 (09:17→17:46)
[2017-11-10 09:23] LABS: MEAN CORPUSCULAR VOLUME 89 fl (80-97)
--- NOTE | 2017-11-10 09:39 | PDOC PROGRESS REPORT ---
Subjective-OB Progress Note for:: 11/10/17 Subjective: Doing well, no c/o, OOB to BR x 3, walked to nursery, no nausea, pain under control Physical Exam (OB) Vital Signs: Temp Pulse Resp BP Pulse Ox 98.2 F 63 18 109/54 L 98 11/10/17 00:12 11/10/17 00:12 11/10/17 00:12 11/10/17 00:12 11/10/17 00:12 Intake & Output 11/09/17 11/10/17 11/11/17 06:59 06:59 06:59 Intake Total 1900 Output Total 3000 Balance -1100 Weight 112.49 kg 112.491 kg - Dressing Removed: No - optsite clean dry and intact Incision: Dressing - Lochia Lochia Amount: Small 10-25 ml Lochia Color: Rubra/Red - Abdomen Description: Soft, Round Hernia Present: No Fundal Description: Firm, Midline Fundal Height: u/u - u/2 Objective-Diagnostic Laboratory: 11/08/17 13:01 Assessment and Plan(PN) - Assessment and Plan (1) IDDM (insulin dependent diabetes mellitus) Is this a current diagnosis for this admission?: Yes (2) Status post repeat low transverse section Is this a current diagnosis for this admission?: Yes - Time Spent with Patient Time with patient: Less than 15 minutes Medications reviewed and adjusted accordingly: Yes - Disposition Anticipated Discharge: Home Within: within 24 hours
[2017-11-10 10:37] LABS: HEMATOCRIT 36.5 % (36.0-47.0); MEAN CORPUSCULAR HGB CONC 33.6 g/dL (32.0-36.0); PLATELET COUNT 136 10^3/uL (150-450); RED BLOOD COUNT 4.08 10^6/uL (3.72-5.28); RED CELL DISTRIBUTION WIDTH 14.1 % (11.5-14.0); WHITE BLOOD COUNT 10.1 10^3/uL (4.0-10.5)
[2017-11-10 10:39] LABS: HEMOGLOBIN 12.2 g/dL (12.0-15.5)
[2017-11-10] MEDS: OXYCODONE-ACETAMINOPHEN 5-325 MG TABLET PO PRN (22:49)
[2017-11-10] MEDS: INSULIN GLARGINE,HUM.REC.ANLOG 300 UNIT/3 ML INSULN.PEN SUBCUT SCH (22:51)
[2017-11-11] MEDS: IBUPROFEN 800 MG TABLET PO SCH ×4 (00:53→18:34)
[2017-11-11] MEDS: PRENATAL VITAMIN W DHA CAPSULE PO SCH (10:50)
[2017-11-11] MEDS: DOCUSATE SODIUM 100 MG CAPSULE PO SCH ×2 (10:50→18:34)
--- NOTE | 2017-11-11 12:14 | PDOC DISCHARGE SUMMARY ---
Final Diagnosis Discharge Date: 11/11/17 - Final Diagnosis (1) IDDM (insulin dependent diabetes mellitus) Is this a current diagnosis for this admission?: Yes (2) Status post repeat low transverse section Is this a current diagnosis for this admission?: Yes Discharge Data - Discharge Medication Prescriptions: Oxycodone HCl/Acetaminophen [Percocet 5-325 mg Tablet] 1 tab PO Q4HP PRN #30 tablet PRN Reason: For Pain Scale 3-5 Ibuprofen [Motrin 800 mg Tablet] 800 mg PO Q8HP PRN #60 tablet PRN Reason: Abdominal Cramping Docusate Sodium [Colace 100 mg Capsule] 100 mg PO BID #60 capsule Home Medications: Insulin Glargine,Hum.rec.anlog [Lantus] 34 units SQ HSP PRN 09/15/17 Vit No.109/Iron/FA [Vinate Care Chewable Tablet] 1 tab PO DAILY Docusate Sodium [Colace 100 mg Capsule] 100 mg PO BID #60 capsule 11/11/17 Ibuprofen [Motrin 800 mg Tablet] 800 mg PO Q8HP PRN #60 tablet 11/11/17 Oxycodone HCl/Acetaminophen [Percocet 5-325 mg Tablet] 1 tab PO Q4HP PRN #30 tablet 11/11/17 Reason(s) for Admission: Ceasarean Section-Repeat Procedures: NST, Ultrasound Intrapartum Procedure(s): : Low Cervical, Transverse - Diagnosis Test Laboratory: Temp Pulse Resp BP Pulse Ox 98.0 F 51 L 17 106/79 99 11/11/17 10:42 11/11/17 10:42 11/11/17 10:42 11/11/17 10:42 11/11/17 10:42 11/08/17 11/08/17 11/10/17 12:55 13:01 06:24 RBC 4.87 4.08 Hgb 14.6 12.2 D Hct 43.1 36.5 Urine Opiates Screen NEGATIVE - Discharge information/Instructions Discharge Activity: Activity As Tolerated, Balance Activity w/Rest, No Driving, No Lifting Over 10 Pounds, Pelvic Rest, No tub bath, Walk Frequently Discharge Diet: Diabetic Disposition: HOME, SELF-CARE Follow up with: [facility] in: 1, Weeks
[2017-11-11 19:58] VITALS: BP 111/58
== END 2017-11-11 19:44 | disposition home or self-care (01) | DRG 765 ==
LOC: 2S 06:37
PROVIDERS: ADMIT Obstetrics & Gynecology; ATTEND Obstetrics & Gynecology
PROC: 10D00Z1 Extraction of Products of Conception, Low, Open Approach (ICD-10-PCS; principal; 2017-11-09 09:45)
PROC: 3E0234Z Introduction of Serum, Toxoid and Vaccine into Muscle, Percutaneous Approach (ICD-10-PCS; 2017-11-11)
PROC: 3E0234Z Introduction of Serum, Toxoid and Vaccine into Muscle, Percutaneous Approach (ICD-10-PCS; 2017-11-11)
DX: O34.211 Maternal care for low transverse scar from previous cesarean delivery (principal); O24.12 Pre-existing type 2 diabetes mellitus, in childbirth; Z68.41 Body mass index [BMI] 40.0-44.9, adult; O99.334 Smoking (tobacco) complicating childbirth; O99.214 Obesity complicating childbirth; N85.8 Other specified noninflammatory disorders of uterus; E11.8 Type 2 diabetes mellitus with unspecified complications; F41.9 Anxiety disorder, unspecified; F17.210 Nicotine dependence, cigarettes, uncomplicated; E66.9 Obesity, unspecified; Z79.4 Long term (current) use of insulin; Z37.0 Single live birth; Z3A.39 39 weeks gestation of pregnancy; Z23 Encounter for immunization
CPT/HCPCS: 1961; 36415; 59025; 80307; 81001; 82962; 85025; 85027; 86850; 86900; 86901; 90707; 90715; 93005; 93010; 94799; J0690; J1815; J1885; J2250; J2405; J2590; J3010; J3490; J7120

== ENCOUNTER 2019-08-28 22:42 | Emergency (ER) | payer SELFPAY ==
[2019-08-28] MEDS ORDERED: RINGERS SOLUTION,LACTATED 1,000 ML IV ONE (23:05)
--- NOTE | 2019-08-28 23:07 | ER Document Report ---
ED Medical Screen (RME) - General Chief Complaint: High Blood Sugar Stated Complaint: BLOOD SUGAR ISSUE/HIGH Time Seen by Provider: 08/28/19 23:00 Primary Care Provider: HUMAIRA PECK MD [Primary Care Provider] - Follow up as needed Mode of Arrival: Ambulatory Information source: Patient Notes: HPI; 29-year-old female history of diet-controlled diabetic for the past 3 years presents to the emergency room for elevated blood sugar at home of 285. States her blood sugars are always under 200 she tried exercise and drinking water but was unable to get her blood sugars down. Accu-Chek in triage 220. She denies any other symptoms. No nausea, no vomiting. Denies any abdominal pain. Patient is extremely concerned about her elevated blood sugar. PE: Alert and oriented x3. Mild distress noted. Lungs: Clear to auscultation without rales, rhonchi, wheezes. Heart: Regular rate rhythm without murmurs, rubs, gallops. I have greeted and performed a rapid initial assessment of this patient. A comprehensive ED assessment and evaluation of the patient, analysis of test results and completion of the medical decision making process will be conducted by additional ED providers. I have specifically instructed the patient or family members with the patient to immediately return to any nursing staff should anything change in the patient's condition or with their chief complaint. TRAVEL OUTSIDE OF THE [place] IN LAST 30 DAYS: No - Related Data Allergies/Adverse Reactions: drospirenone [From Ocella] Allergy (Verified 11/08/17 10:59) dizzy,lightheaded,can't stand ethinyl estradiol [From Ocella] Allergy (Verified 11/08/17 10:59) dizzy,lightheaded,can't stand medroxyprogesterone acetate [From Provera] Allergy (Verified 11/05/17 00:12) Past Medical History - Past Medical History Cardiac Medical History: Denies: Hx Hypertension, Hx Heart Murmur Endocrine Medical History: Reports: Hx Diabetes Mellitus Type 2. Denies: Hx Hyperthyroidism, Hx Hypothyroidism Renal/ Medical History: Reports: Hx Ovarian Cysts - pcos. Denies: Hx Peritoneal Dialysis Malignancy Medical History: Denies: Hx Breast Cancer, Hx Cervical Cancer, Hx Ovarian Cancer GI Medical History: Reports: Hx Gastroesophageal Reflux Disease. Denies: Hx Hiatal Hernia, Hx Ulcer Psychiatric Medical History: Reports: Hx Anxiety, Hx Depression Past Surgical History: Reports: Hx Section - 1 - Immunizations Immunizations up to date: Yes Hx Diphtheria, Pertussis, Tetanus Vaccination: Yes Physical Exam - Vital signs Vitals: Temp Pulse Resp BP Pulse Ox 98.5 F 80 20 145/84 H 98 08/28/19 22:49 08/28/19 22:49 08/28/19 22:49 08/28/19 22:49 08/28/19 22:49 Course - Vital Signs Vital signs: Temp Pulse Resp BP Pulse Ox 98.5 F 80 20 145/84 H 98 08/28/19 22:49 08/28/19 22:49 08/28/19 22:49 08/28/19 22:49 08/28/19 22:49 Doctor's Discharge - Discharge Referrals: HUMAIRA PECK MD [Primary Care Provider] - Follow up as needed
[2019-08-28 23:31] LABS: APPEARANCE,URINE CLEAR; BILIRUBIN,URINE NEGATIVE (NEGATIVE); COLOR,URINE COLORLESS; GLUCOSE, URINE 50 mg/dL (NEGATIVE); KETONES,URINE NEGATIVE (NEGATIVE); LEUKOCYTE ESTERASE,URINE NEGATIVE (NEGATIVE); NITRITE,URINE NEGATIVE (NEGATIVE); PROTEIN,URINE NEGATIVE (NEGATIVE); URINE SPECIFIC GRAVITY 1.001; UROBILINOGEN,URINE NEGATIVE mg/dL (<2.0)
--- NOTE | 2019-08-29 00:22 | ER Document Report ---
ED General - General Chief Complaint: High Blood Sugar Stated Complaint: BLOOD SUGAR ISSUE/HIGH Time Seen by Provider: 08/28/19 23:00 Primary Care Provider: HUMAIRA PECK MD [ACTIVE STAFF] - Follow up as needed Mode of Arrival: Ambulatory Information source: Patient TRAVEL OUTSIDE OF THE [place] IN LAST 30 DAYS: No - HPI Onset: Other - over the last 12 hours Onset/Duration: Gradual Quality of pain: No pain Severity: Mild Pain Level: Denies Associated symptoms: None Exacerbated by: Denies Relieved by: Denies Similar symptoms previously: No Recently seen / treated by doctor: No Notes: 29 year old female with a history of Diet Controlled DM, Anxiety, GERD, Obesity here in the ER for concern of high blood sugars. The patient usually takes her blood sugar 3 times a day. Today her blood sugars were above 200 (highest in the 280s) which is not normal for her. The patient says she ate a piece of cheese cake and was in the heat as of late but otherwise her daily routine has been unchanged. The patient denies recent infectious symptoms such as fevers, chills, sweats, runny nose, sore throat, cough, diarrhea, urinary symptoms. The patient has been on insulin before but she was able to come off medications with diet control apparently. The patient has not been on oral diabetic medications such as metformin in the past. - Related Data Allergies/Adverse Reactions: drospirenone [From Ocella] Allergy (Verified 11/08/17 10:59) dizzy,lightheaded,can't stand ethinyl estradiol [From Ocella] Allergy (Verified 11/08/17 10:59) dizzy,lightheaded,can't stand medroxyprogesterone acetate [From Provera] Allergy (Verified 11/05/17 00:12) Past Medical History - General Information source: Patient - Social History Smoking Status: Current Every Day Smoker Frequency of alcohol use: Occasional Drug Abuse: None Lives with: Family Family History: DM, Hyperlipidemia, Malignancy, Thyroid Disfunction, Other - hemochromotosis and kidney disease - Past Medical History Cardiac Medical History: Denies: Hx Hypertension, Hx Heart Murmur Endocrine Medical History: Reports: Hx Diabetes Mellitus Type 2. Denies: Hx Hyperthyroidism, Hx Hypothyroidism Renal/ Medical History: Reports: Hx Ovarian Cysts - pcos. Denies: Hx Peritoneal Dialysis Malignancy Medical History: Denies: Hx Breast Cancer, Hx Cervical Cancer, Hx Ova vilma Cancer GI Medical History: Reports: Hx Gastroesophageal Reflux Disease. Denies: Hx Hiatal Hernia, Hx Ulcer Psychiatric Medical History: Reports: Hx Anxiety, Hx Depression Past Surgical History: Reports: Hx Section - 1 - Immunizations Immunizations up to date: Yes Hx Diphtheria, Pertussis, Tetanus Vaccination: Yes Review of Systems - Review of Systems Constitutional: No symptoms reported EENT: No symptoms reported Cardiovascular: No symptoms reported Respiratory: No symptoms reported Gastrointestinal: No symptoms reported Genitourinary: No symptoms reported Female Genitourinary: No symptoms reported Musculoskeletal: No symptoms reported Skin: No symptoms reported Hematologic/Lymphatic: No symptoms reported Neurological/Psychological: No symptoms reported -: Yes All other systems reviewed and negative Physical Exam - Vital signs Vitals: Temp Pulse Resp BP Pulse Ox 98.5 F 80 20 145/84 H 98 08/28/19 22:49 08/28/19 22:49 08/28/19 22:49 08/28/19 22:49 08/28/19 22:49 - Notes Notes: GENERAL: Well-appearing, well-nourished and in no acute distress. HEAD: Atraumatic, normocephalic. EYES: Pupils equal round and reactive to light, extraocular movements intact, sclera anicteric, conjunctiva are normal. ENT: External ears normal, nares patent, oropharynx clear without exudates. Moist mucous membranes. NECK: Normal range of motion, supple without lymphadenopathy or JVD. LUNGS: Breath sounds clear to auscultation bilaterally and equal. No wheezes rales or rhonchi. HEART: Regular rate and rhythm without murmurs, rubs or gallops. ABDOMEN: Soft, nontender, normoactive bowel sounds. No guarding, no rebound. No masses appreciated. EXTREMITIES: Normal range of motion, no pitting or edema. No clubbing or cyanosis. NEUROLOGICAL: Cranial nerves II through XII grossly intact. Normal speech, normal gait. PSYCH: Normal mood, normal affect. SKIN: Warm, Dry, normal turgor, no rashes or lesions noted. Course - Re-evaluation Re-evalutation: 08/29/19 00:52 The patient has diabetes and her blood sugars have been in the high 200s over the last day or so. The patient says this is new for her. The patient is not in DKA. Patient treated with IV fluids, Hemoglobin A1C checked (7.6), and patient prescribed Metformin 500mg BID and told to follow up with her PCP. - Vital Signs Vital signs: Temp Pulse Resp BP Pulse Ox 98.5 F 80 20 145/84 H 98 08/28/19 22:49 08/28/19 22:49 08/28/19 22:49 08/28/19 22:49 08/28/19 22:49 - Laboratory Result Diagrams: 08/29/19 00:35 08/29/19 00:35 Laboratory results interpreted by me: 08/28/19 08/28/19 08/29/19 22:58 23:10 00:35 WBC 10.6 H Eos % (Auto) 6.6 H Absolute Eos (auto) 0.7 H Sodium Glucose POC Glucose 220 H Hemoglobin A1c % AST ALT Urine Glucose (UA) 50 H Urine Blood SMALL H 08/29/19 08/29/19 00:35 00:35 WBC Eos % (Auto) Absolute Eos (auto) Sodium 134.9 L Glucose 237 H POC Glucose Hemoglobin A1c % 7.6 H AST 42 H ALT 66 H Urine Glucose (UA) Urine Blood Discharge - Discharge Clinical Impression: Hyperglycemia Diabetes Qualifiers: Diabetes mellitus type: type 2 Diabetes mellitus termite treater helper insulin use: without fpc use Diabetes mellitus complication status: without complication Qualified Code(s): E11.9 - Type 2 diabetes mellitus without complications Condition: Stable Disposition: HOME, SELF-CARE Instructions: Hyperglycemia ([facility]), Diabetes ([facility]) Additional Instructions: Drink plenty of water in the days to come. Avoid foods high in sugar and simple carbohydrates such as pasta, rice, white bread. Your Hemoglobin A1C was 7.6 in the ER. Speak with your primary care doctor for management of your diabetes but start start taking Metformin 500mg BID. Prescriptions: Metformin HCl [Glucophage 500 mg Tablet] 500 mg PO BID #60 tablet Referrals: HUMAIRA PECK MD [ACTIVE STAFF] - Follow up as needed
[2019-08-29 00:44] LABS: ABSOLUTE BASOPHILS # (AUTO) 0.1 10^3/uL (0.0-0.2); ABSOLUTE EOSINOPHILS # (AUTO) 0.7 10^3/uL (0.0-0.6); ABSOLUTE LYMPHOCYTES (AUTO) 3.5 10^3/uL (0.5-4.7); ABSOLUTE MONOCYTES (AUTO) 0.7 10^3/uL (0.1-1.4); ABSOLUTE NEUT (AUTO) 5.6 10^3/uL (1.7-8.2); BASOPHILS % (AUTO) 0.8 % (0-2); EOSINOPHILS % (AUTO) 6.6 % (0-6); HEMATOCRIT 44.2 % (36.0-47.0); HEMOGLOBIN 15.2 g/dL (12.0-15.5); LYMPHOCYTES % (AUTO) 32.8 % (13-45); MEAN CORPUSCULAR HEMOGLOBIN 30.9 pg (27.0-33.4); MEAN CORPUSCULAR HGB CONC 34.3 g/dL (32.0-36.0); MEAN CORPUSCULAR VOLUME 90 fl (80-97); MONOCYTES % (AUTO) 6.9 % (3-13); PLATELET COUNT 234 10^3/uL (150-450); RED CELL DISTRIBUTION WIDTH 12.8 % (11.5-14.0); SEGMENTED NEUTROPHILS % (AUTO) 52.9 % (42-78); TOTAL CELLS COUNTED % (AUTO) 100 %; WHITE BLOOD COUNT 10.6 10^3/uL (4.0-10.5)
[2019-08-29 01:02] LABS: ALBUMIN 4.4 g/dL (3.5-5.0); ALKALINE PHOSPHATASE 66 U/L (38-126); ANION GAP 8 (5-19); ASPARTATE AMINO TRANSFERASE 42 U/L (14-36); BILIRUBIN,TOTAL 0.8 mg/dL (0.2-1.3); BLOOD UREA NITROGEN 10 mg/dL (7-20); CALCIUM 9.4 mg/dL (8.4-10.2); CARBON DIOXIDE 24 mmol/L (22-30); CHLORIDE 103 mmol/L (98-107); GLUCOSE 237 mg/dL (75-110); POTASSIUM 4.1 mmol/L (3.6-5.0); TOTAL PROTEIN 7.3 g/dL (6.3-8.2)
[2019-08-29 01:54] VITALS: BP 117/70
== END 2019-08-29 01:54 | disposition home or self-care (01) ==
LOC: ER 22:42
DX: E11.65 Type 2 diabetes mellitus with hyperglycemia (principal); F17.200 Nicotine dependence, unspecified, uncomplicated; Z88.8 Allergy status to other drugs, medicaments and biological substances
CPT/HCPCS: 99285; 36415; 82962; 85025; 81025; 80053; 81001; 83036; J7120; 96360